=== PATIENT | female | born 1970 | race Caucasian/White ===

== ENCOUNTER 2021-01-22 21:55 | Emergency (ER) | payer OTHER ==
[~2021-01-22] VITALS: Ht 162.6 cm; Wt 108.9 kg
[2021-01-22] MEDS ORDERED: PRILOSEC OTC20 MG PO (22:14)
[2021-01-22] MEDS ORDERED: LEXAPRO20 MG PO (22:14)
[2021-01-22] MEDS ORDERED: DESYREL150 MG PO (22:14)
[2021-01-22 23:59] VITALS: BP 144/67
== END 2021-01-22 23:59 | disposition home or self-care (01) ==
LOC: M.ERS 21:55
DX: S63.501A Unspecified sprain of right wrist, initial encounter (principal); S50.01XA Contusion of right elbow, initial encounter; W19.XXXA Unspecified fall, initial encounter; Y93.89 Activity, other specified; Y92.89 Other specified places as the place of occurrence of the external cause; Y99.8 Other external cause status